=== PATIENT | male | born 1970 | race African-American/Black ===

== ENCOUNTER 2023-10-25 06:58 | Emergency (ER) | payer BC, OTHER, SELFPAY ==
[2023-10-25] MEDS ORDERED: Dicyclomine 20 MG/2 ML VIAL ONE (07:39)
[2023-10-25] MEDS ORDERED: Ondansetron PF 4 MG/2 ML Vial ONE (07:40)
[2023-10-25 07:48] LABS: Eosinophils 2 % (0-10); Hematocrit 49.4 % (42.0-52.0); Hemoglobin 15.8 g/dL (14.0-18.0); Lymphocytes 27 % (21-51); MDiff Complete? YES; Mean Corpuscular HGB CONC 31.9 g/dL (32.0-36.0); Mean Corpuscular Hemoglobin 28.8 pg (27.0-31.0); Mean Corpuscular Volume 90.2 fl (78.0-98.0); Mean Platelet Volume 9.4 fL (7.4-10.4); Monocytes 6 % (0-10); Neutrophil 64 % (42-75); Platelet Count 171 10x3/uL (130-400); RBC Distribution Width 12.2 % (11.5-14.5); Red Blood Cell (RBC) Count 5.48 mill/uL (4.70-6.10); White Blood Cell (WBC) Count 4.3 10x3/uL (4.8-10.8)
[2023-10-25 08:05] LABS: ALT (SGPT) 46 U/L (8-55); AST (SGOT) 35 U/L (5-34); Albumin 3.9 g/dL (3.5-5.0); Alkaline Phosphatase 58 U/L (40-110); Anion Gap 13 mmol/L (10-20); BUN (Urea Nitrogen) 11 mg/dL (8.4-25.7); Bilirubin, Total 0.4 mg/dL (0.2-1.2); Calc. Creatinine Clearance 0 mL/min (70-130); Calcium 8.9 mg/dL (7.8-10.44); Carbon Dioxide 25 mmol/L (22-29); Chloride 105 mmol/L (98-107); Estimated GFR 74; Globulin 2.7 g/dL (2.4-3.5); Glucose 110 mg/dL (70-105); Lipase 31 U/L (8-78); Protein, Total 6.6 g/dL (6.0-8.3); Sodium 139 mmol/L (136-145)
== END 2023-10-25 08:33 | disposition home or self-care (01) ==
LOC: BURERS 06:58
DX: A08.4 Viral intestinal infection, unspecified (principal); I10 Essential (primary) hypertension
CPT/HCPCS: 80053; 83690; 85025; 96372; 96374; J2405